=== PATIENT | male | born 1995 | race Caucasian/White ===

== ENCOUNTER 2017-04-01 11:44 | Emergency (ER) | payer OTHER ==
[2017-04-01 12:41] VITALS: RESP 18; BMI 31.4
--- NOTE | 2017-04-01 13:42 | RAD ---
Left ankle radiographs Left foot radiographs Left tibia fibula radiographs Comparison: None available Findings: Marked soft tissue swelling particularly at the level of the ankle. Proximal fibular oblique fracture. Thin linear ossific fragments noted anterior to the talus likely related to avulsion fracture, origin unclear. Additional ossific density seen posterior to the fibula, possibly chronic however fracture fragment is not excluded. The remainder the visualized osseous structures appear intact. No evidence of radiopaque foreign body. Impression: Marked soft tissue swelling particularly at the level of the ankle. Mildly displaced oblique proximal fibular fracture. Thin linear ossific fragments noted anterior to the talus likely related to avulsion fracture, origin unclear. Additional ossific density seen posterior to the fibula, possibly chronic however fracture fragment is not excluded.
--- NOTE | 2017-04-01 13:44 | RAD ---
Left ankle radiographs Left foot radiographs Left tibia fibula radiographs Indication: Injury Comparison: None available Findings: Marked soft tissue swelling particularly at the level of the ankle. Proximal fibular oblique fracture. Thin linear ossific fragments noted anterior to the talus likely related to avulsion fracture, origin unclear. Additional ossific density seen posterior to the fibula, possibly chronic however fracture fragment is not excluded. The remainder the visualized osseous structures appear intact. No evidence of radiopaque foreign body. Impression: Marked soft tissue swelling particularly at the level of the ankle. Mildly displaced oblique proximal fibular fracture. Thin linear ossific fragments noted anterior to the talus likely related to avulsion fracture, origin unclear. Additional ossific density seen posterior to the fibula, possibly chronic however fracture fragment is not excluded.
--- NOTE | 2017-04-01 13:52 | C.PDOC ---
History Of Present Illness 21 yo male come in for evaluation of Left ankle and pain swelling gradually developed for past 4 days after sustained twisting injury to Left ankle on wet floor at home. Pt reports, gradually developed pain and discomfort now on ambulation over Left ankle. Otherwise, pt denies head injury, LOC, syncope, neck pain, denies obvious deformity, weakness, sensory or vascular deficits to B /L UEs and lEs. Ambulate to ED w/assistance of cane. Time Seen by Provider: 04/01/17 12:05 Chief Complaint (Nursing): Lower Extremity Problem/Injury History Per: Patient Onset/Duration Of Symptoms: Sudden Onset Past Medical History Reviewed: Historical Data, Nursing Documentation, Vital Signs Vital Signs: Last Vital Signs Temp 98.3 F 04/01/17 12:36 Pulse 79 04/01/17 12:36 Resp 18 04/01/17 12:36 BP 128/87 04/01/17 12:36 Pulse Ox 96 04/01/17 13:59 - Medical History PMH: No Chronic Diseases Family History: States: No Known Family Hx - Social History Hx Alcohol Use: No Hx Substance Use: No - Immunization History Hx Tetanus Toxoid Vaccination: Yes Hx Influenza Vaccination: Yes Hx Pneumococcal Vaccination: Yes Review Of Systems Except As Marked, All Systems Reviewed And Found Negative. Constitutional: Negative for: Fever, Chills ENT: Negative for: Throat Pain Gastrointestinal: Negative for: Vomiting, Abdominal Pain Genitourinary: Negative for: Incontinence Musculoskeletal: Positive for: Leg Pain, Foot Pain, Other (ankle Left ankle). Negative for: Neck Pain, Back Pain Skin: Negative for: Rash, Bruising Neurological: Negative for: Weakness, Numbness, Altered Mental Status Physical Exam - Physical Exam Appears: Well, Non-toxic, No Acute Distress Skin: Normal Color, Warm, No Rash, No Ecchymosis Head: Atraumatic, Normacephalic Neck: No Midline Cervical Tenderness, No Paracervical Tenderness, No Step Off Deformity, Supple Chest: Symmetrical, No Deformity, No Tenderness Back: No Vertebral Tenderness, No Paraspinal Tenderness Extremity: Normal ROM (mild discomfort Left ankle flexion/extension.), Tenderness (Left ankle: lateral and medial malleolus with diffuse edema. No palpable defomrity. Left proximal tibia mild tenderness.), No Calf Tenderness, Capillary Refill (less than 2sec to left foot) Neurological/Psych: Oriented x3, Normal Speech, Normal Motor, Normal Sensation, Normal Reflexes ED Course And Treatment O2 Sat by Pulse Oximetry: 96 (RA) Pulse Ox Interpretation: Normal - Other Rad X-Ray - Left Ankle X-Ray: Viewed By Me, Read By Radiologist Interpretation: Findings: Marked soft tissue swelling particularly at the level of the ankle. Proximal fibular oblique fracture. Thin linear ossific fragments noted anterior to the talus likely related to avulsion fracture, origin unclear. Additional ossific density seen posterior to the fibula, possibly chronic however fracture fragment is not excluded. The remainder the visualized osseous structures appear intact. No evidence of radiopaque foreign body. Impression: Marked soft tissue swelling particularly at the level of the ankle. Mildly displaced oblique proximal fibular fracture. Thin linear ossific fragments noted anterior to the talus likely related to avulsion fracture, origin unclear. Additional ossific density seen posterior to the fibula, possibly chronic however fracture fragment is not excluded. X-Ray - Left Foot X-Ray: Viewed By Me, Read By Radiologist Interpretation: Findings: Marked soft tissue swelling particularly at the level of the ankle. Proximal fibular oblique fracture. Thin linear ossific fragments noted anterior to the talus likely related to avulsion fracture, origin unclear. Additional ossific density seen posterior to the fibula, possibly chronic however fracture fragment is not excluded. The remainder the visualized osseous structures appear intact. No evidence of radiopaque foreign body. Impression: Marked soft tissue swelling particularly at the level of the ankle. Mildly displaced oblique proximal fibular fracture. Thin linear ossific fragments noted anterior to the talus likely related to avulsion fracture, origin unclear. Additional ossific density seen posterior to the fibula, possibly chronic however fracture fragment is not excluded. X-Ray - Left Tibia/Fibula X-Ray: Viewed By Me, Read By Radiologist Interpretation: Findings: Marked soft tissue swelling particularly at the level of the ankle. Proximal fibular oblique fracture. Thin linear ossific fragments noted anterior to the talus likely related to avulsion fracture, origin unclear. Additional ossific density seen posterior to the fibula, possibly chronic however fracture fragment is not excluded. The remainder the visualized osseous structures appear intact. No evidence of radiopaque foreign body. Impression: Marked soft tissue swelling particularly at the level of the ankle. Mildly displaced oblique proximal fibular fracture. Thin linear ossific fragments noted anterior to the talus likely related to avulsion fracture, origin unclear. Additional ossific density seen posterior to the fibula, possibly chronic however fracture fragment is not excluded. Progress Note: On re-eval, pt is afebrile, hemodynamicaly stable. Non-toxic. LLE: tenderness over lateral and medial malleolus of left ankle with diffuse edema. No palpable deformity. No skin changes, no neurovascular deficits. Imaging review (+) proximal fibula fx, spiral, (+) avulsion fx distal fibula? Pt notified about imaging. Ortho glass splint applied to left leg, crutches provided. Pt advised and ref. to f uwith ortho in2 -3 days for re-eavl. return to ED if any worsneing or new changes. Orthopedic Time Performed: 13:20 Time Out: Side verified, Site verified, Patient ID confirmed Procedure: Splint Type: Long, Posterior Location: Left, Leg Consent obtained: Verbal Performed by: Mid-level Provider Diagnosis: Fracture Type: Closed Location: Left, Proximal Bone: Fibula Disposition Counseled Patient/Family Regarding: Studies Performed, Diagnosis, Need For Followup, Rx Given - Disposition Referrals: Bronwyn Collins MD [Staff Provider] - [facility] [Outside] Disposition: HOME/ ROUTINE Disposition Time: 13:30 Condition: STABLE Additional Instructions: NONE-WEIGHT BEARING, CRUTCHES TAKE PAIN MEDICATION NEED FOLLOW UP WITH ORTHOPEDIST IN 2-3 DAYS FOR RE-EVALUATION, CAST PLACEMENT RETURN TO ED IF ANY WORSENING OR NEW CHANGES. Prescriptions: traMADol [Ultram] 50 mg PO TID #7 tab Instructions: Leg Fracture (ED) Forms: [employer] (Bulgarian) - Clinical Impression Clinical Impression: Fibula fracture
[2017-04-01 15:08] VITALS: BP 121/84; PULSE 80; TEMP 98; O2SAT 100
== END 2017-04-01 15:05 | disposition home or self-care (01) ==
LOC: C.ER 11:44
DX: S82.832A Other fracture of upper and lower end of left fibula, initial encounter for closed fracture (principal); X50.1XXA Overexertion from prolonged static or awkward postures, initial encounter; Y92.009 Unspecified place in unspecified non-institutional (private) residence as the place of occurrence of the external cause